=== PATIENT | female | born 1990 ===

== ENCOUNTER 2020-05-25 15:25 | Emergency (ER) | payer SELFPAY ==
[~2020-05-25] VITALS: Ht 165 cm; Wt 72.0 kg
[2020-05-25 15:44] VITALS: BP 124/86
[2020-05-25 16:00] VITALS: BP 125/80
[2020-05-25] MEDS ORDERED: LACTATED RINGERS 1,000 ML IV STA (16:07)
[2020-05-25] MEDS ORDERED: KETOROLAC 30 MG/ML VIAL IVP STA (16:07)
[2020-05-25] MEDS ORDERED: ONDANSETRON 4 MG/2 ML (SDV) Z0FRAN IVP ONE (16:15)
[2020-05-25 16:16] VITALS: BP 127/80
--- NOTE | 2020-05-25 16:16 | ED Cough/URI ---
General Chief Complaint: Respiratory Problems Stated Complaint: COVID COMPLAINTS Source: patient Exam Limitations: no limitations History of Present Illness Date Seen by Provider: May 25, 2020 Time Seen by Provider: 15:59 Initial Comments Here with report of headache, nausea, vomiting, shortness of breath and body aches. She has had fever at home. Tried to take Tylenol this morning but vomited. She works at [employer] in [place]. There is one positive contact from that facility. She has not been tested for COVID-19 and otherwise doesn't know of any other exposures. She was sent here from her work for testing. Patient is and information via sampler pickup line. Timing/Duration: other (6 days) Severity/Quality: mild, dry cough Prior Episodes/Possible Cause: no prior episodes Modifying Factors: Improves With Rest Associated Symptoms: cough, fever/chills, nasal congestion, shortness of breath Allergies and Home Medications Allergies Coded Allergies: No Known Drug Allergies (Unverified , 05/25/20) Home Medications No Active Prescriptions or Reported Meds Patient Home Medication List Home Medication List Reviewed: Yes Review of Systems Review of Systems Constitutional: see HPI, fever; No weakness EENTM: see HPI; No ear pain Respiratory: cough, short of breath Cardiovascular: no symptoms reported Gastrointestinal: No abdominal pain; nausea, vomiting Genitourinary: no symptoms reported : No Musculoskeletal: muscle pain; No muscle weakness Skin: no symptoms reported Psychiatric/Neurological: No Symptoms Reported All Other Systems Reviewed Negative Unless Noted: Yes Past Ayhbejx-Njhddz-Exksdh Hx Past Med/Social Hx: Reviewed Nursing Past Med/Soc Hx Patient Social History Alcohol Use: Denies Use Recreational Drug Use: No Smoking Status: Never a Smoker Past Medical History Surgeries: Yes Section Respiratory: No Cardiac: No Neurological: No : 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 oz. kg; BMI Method: General Appearance: WD/WN, no apparent distress HEENT: PERRL/EOMI, pharyngeal erythema Neck: full range of motion, supple Respiratory: lungs clear, normal breath sounds Cardiovascular: regular rate, rhythm, no murmur Gastrointestinal: non tender, soft Extremities: non-tender, normal inspection Neurologic/Psychiatric: alert, oriented x 3 Skin: normal color, warm/dry Progress/Results/Core Measures Suspected Sepsis SIRS Temperature: Pulse: Respiratory Rate: Laboratory Tests 05/25/20 16:20: White Blood Count 4.7 Blood Pressure / Mean: Laboratory Tests 05/25/20 16:20: Creatinine 0.65, Platelet Count 165, Total Bilirubin 0.3 Results/Orders Lab Results Laboratory Tests Test 05/25/20 16:10 05/25/20 16:20 05/25/20 16:22 Range/Units Urine Color YELLOW Urine Clarity CLEAR Urine pH 7.0 5-9 Urine Specific Colby 1.025 H 1.016-1.022 Urine Protein NEGATIVE NEGATIVE Urine Glucose (UA) NEGATIVE NEGATIVE Urine Ketones NEGATIVE NEGATIVE Urine Nitrite NEGATIVE NEGATIVE Urine Bilirubin NEGATIVE NEGATIVE Urine Urobilinogen 0.2 < = 1.0 MG/DL Urine Leukocyte Esterase NEGATIVE NEGATIVE Urine RBC (Auto) TRACE-L NEGATIVE Urine RBC NONE /HPF Urine WBC NONE /HPF Urine Squamous Epithelial Cells RARE /HPF Urine Crystals NONE /LPF Urine Bacteria NEGATIVE /HPF Urine Casts NONE /LPF Urine Mucus SMALL H /LPF Urine Culture Indicated NO Urine Test NEGATIVE NEGATIVE White Blood Count 4.7 4.3-11.0 10^3/uL Red Blood Count 4.19 L 4.35-5.85 10^6/uL Hemoglobin 12.7 11.5-16.0 G/DL Hematocrit 38 35-52 % Mean Corpuscular Volume 91 80-99 FL Mean Corpuscular Hemoglobin 30 25-34 PG Mean Corpuscular Hemoglobin Concent 33 32-36 G/DL Red Cell Distribution Width 12.9 10.0-14.5 % Platelet Count 165 130-400 10^3/uL Mean Platelet Volume 11.1 H 7.4-10.4 FL Neutrophils (%) (Auto) 55 42-75 % Lymphocytes (%) (Auto) 34 12-44 % Monocytes (%) (Auto) 8 0-12 % Eosinophils (%) (Auto) 3 0-10 % Basophils (%) (Auto) 0 0-10 % Neutrophils # (Auto) 2.6 1.8-7.8 X 10^3 Lymphocytes # (Auto) 1.6 1.0-4.0 X 10^3 Monocytes # (Auto) 0.4 0.0-1.0 X 10^3 Eosinophils # (Auto) 0.1 0.0-0.3 10^3/uL Basophils # (Auto) 0.0 0.0-0.1 10^3/uL Sodium Level 138 135-145 MMOL/L Potassium Level 3.7 3.6-5.0 MMOL/L Chloride Level 108 H 98-107 MMOL/L Carbon Dioxide Level 20 L 21-32 MMOL/L Anion Gap 10 5-14 MMOL/L Blood Urea Nitrogen 19 H 7-18 MG/DL Creatinine 0.65 0.60-1.30 MG/DL Estimat Glomerular Filtration Rate > 60 BUN/Creatinine Ratio 29 Glucose Level 110 H 70-105 MG/DL Calcium Level 8.3 L 8.5-10.1 MG/DL Corrected Calcium 8.3 L 8.5-10.1 MG/DL Total Bilirubin 0.3 0.1-1.0 MG/DL Aspartate Amino Transf (AST/SGOT) 16 5-34 U/L Alanine Aminotransferase (ALT/SGPT) 11 0-55 U/L Alkaline Phosphatase 39 L 40-136 U/L C-Reactive Protein High Sensitivity 0.03 0.00-0.50 MG/DL Total Protein 6.8 6.4-8.2 GM/DL Albumin 4.0 3.2-4.5 GM/DL My Orders Orders - NGOZI BURTON MD Chest 1 View, Ap/Pa Only (05/25/20 16:07) Cbc With Automated Diff (05/25/20 16:07) Comprehensive Metabolic Panel (05/25/20 16:07) Hs C Reactive Protein (05/25/20 16:07) Ua Culture If Indicated (05/25/20 16:07) Urine Bedside (05/25/20 16:07) Coronavirus Sars-Cov-2 So 2018 (05/25/20 16:07) Ondansetron Injection (Zofran Injectio (05/25/20 16:15) Lactated Ringers (Lr 1000 Ml Iv Solution (05/25/20 16:07) Ed Iv/Invasive Line Start (05/25/20 16:07) Ketorolac Injection (Toradol Injection) (05/25/20 16:07) Hcg,Qualitative Urine (05/25/20 16:33) Medications Given in ED Current Medications Medications Dose Ordered Sig/Cha Route Start Time Stop Time Status Last Admin Dose Admin Ondansetron HCl 4 mg ONCE ONCE IVP 05/25/20 16:15 05/25/20 16:16 DC 05/25/20 16:50 4 MG Vital Signs/I&O 05/25/20 05/25/20 05/25/20 05/25/20 15:44 16:00 16:02 16:16 Temp 36.6 Pulse 65 60 66 63 Resp 18 18 18 18 B/P (MAP) 124/86 (99) 125/80 (95) 124/86 (99) 127/80 (96) Pulse Ox 99 99 100 99 O2 Delivery Room Air Room Air Room Air Room Air 05/25/20 16:50 Temp 36.6 Capillary Refill : Progress Note : Progress Note Seen and evaluated. IV, labs, UA, UCG, chest x-ray, COVID-19 screening, LR 1 L bolus, Zofran 4 mg IV and Toradol 30 mg IV ordered. Monitor patient. 1712: Labs and chest x-ray reviewed. No significant findings. Patient is feeling better. Discharged home with return precautions. Patient verbalize understanding instructions and agreement with plan. Discharge instructions given via sampler pickup line. Diagnostic Imaging Diagonstic Imaging: Xray Plain Films/CT/US/NM/MRI: chest Comments [facility], [place] NAME: JANETHRAJ MONTIELMICHELE [facility] REC#: [id number] PT STATUS: REG ER : 1990 PHYSICIAN: NGOZI BURTON MD ADMIT DATE: 05/25/20/ER Draft Date of Exam:05/25/20 CHEST 1 VIEW, AP/PA ONLY INDICATION: Cough. Evaluation for Covid. EXAMINATION: Portable chest. FINDINGS: The lungs are well-aerated and clear. The heart is not enlarged. No pulmonary edema or hilar adenopathy. No pneumothorax or pleural effusion. No bony abnormalities. IMPRESSION: Normal portable chest. Dictated on workstation # [id number] Dict: 05/25/20 1654 Trans: 05/25/20 1657 [id number] Interpreted by: GISELA NARAYAN MD Electronically signed by: Departure Impression Primary Impression: Viral infection Additional Impression: COVID-19 evaluation Disposition: 01 HOME, SELF-CARE Condition: Improved Departure-Patient Inst. Decision time for Depature: 17:14 Patient Instructions: Coronavirus Disease 2019 (COVID-19) (DC) Add. Discharge Instructions: All discharge instructions reviewed with patient and/or family. Voiced understanding. You will be off work until test results are noted. If your negative, you should remain off work for 3 days after symptoms resolve. If you were positive, he will be required to be in isolation for the health department and they will call you. We will let you know of your results usually within 2-3 days. You may take Tylenol 1000 mg every 8 hours as needed for pain. You may take ibuprofen 600 mg every 8 hours as needed for pain. Drink plenty of fluids and get plenty of rest. Return for worse pain, fever, vomiting or other concerns as needed. Scripts Ondansetron (Ondansetron Odt) 4 Mg Tab.rapdis 4 MG PO Q6H PRN for NAUSEA/VOMITING, #12 TAB 0 Refills Prov: NGOZI BURTON MD 05/25/20 NGOZI BURTON MD May 25, 2020 16:16
--- NOTE | 2020-05-25 16:22 | NUR ---
COVID SWAB COLLECTED.
[2020-05-25 16:30] VITALS: BP 115/80
[2020-05-25 16:39] LABS: BILIRUBIN,URINE NEGATIVE (NEGATIVE); CLARITY,URINE CLEAR; COLOR,URINE YELLOW; GLUCOSE, URINE (UA) NEGATIVE (NEGATIVE); KETONES,URINE NEGATIVE (NEGATIVE); LEUKOCYTE ESTERASE ,URINE NEGATIVE (NEGATIVE); NITRITE,URINE NEGATIVE (NEGATIVE); PROTEIN,URINE NEGATIVE (NEGATIVE)
[2020-05-25 16:45] VITALS: BP 115/75
[2020-05-25 16:49] LABS: BASOPHILS % (AUTO) 0 % (0-10); EOSINOPHILS # (AUTO) 0.1 10^3/uL (0.0-0.3); EOSINOPHILS % (AUTO) 3 % (0-10); HEMATOCRIT 38 % (35-52); HEMOGLOBIN 12.7 G/DL (11.5-16.0); LYMPHOCYTES # (AUTO) 1.6 X 10^3 (1.0-4.0); LYMPHOCYTES % (AUTO) 34 % (12-44); MEAN CORPUSCULAR HEMOGLOBIN 30 PG (25-34); MEAN CORPUSCULAR HGB CONC 33 G/DL (32-36); MEAN CORPUSCULAR VOLUME 91 FL (80-99); MEAN PLATELET VOLUME 11.1 FL (7.4-10.4); MONOCYTES # (AUTO) 0.4 X 10^3 (0.0-1.0); MONOCYTES % (AUTO) 8 % (0-12); NEUTROPHILS # (AUTO) 2.6 X 10^3 (1.8-7.8); NEUTROPHILS % (AUTO) 55 % (42-75); PLATELET COUNT 165 10^3/uL (130-400); RED CELL DISTRIBUTION WIDTH 12.9 % (10.0-14.5); WHITE BLOOD COUNT 4.7 10^3/uL (4.3-11.0)
[2020-05-25 16:53] LABS: CHLORIDE 108 MMOL/L (98-107); POTASSIUM 3.7 MMOL/L (3.6-5.0); SODIUM 138 MMOL/L (135-145)
[2020-05-25 16:54] LABS: CALCIUM 8.3 MG/DL (8.5-10.1)
[2020-05-25 16:55] LABS: GLUCOSE 110 MG/DL (70-105)
[2020-05-25 16:56] LABS: TOTAL PROTEIN 6.8 GM/DL (6.4-8.2)
[2020-05-25 16:57] LABS: BILIRUBIN,TOTAL 0.3 MG/DL (0.1-1.0); CARBON DIOXIDE 20 MMOL/L (21-32)
--- NOTE | 2020-05-25 16:58 | Diagnostic Imaging Report ---
INDICATION: Cough. Evaluation for Covid. EXAMINATION: Portable chest. FINDINGS: The lungs are well-aerated and clear. The heart is not enlarged. No pulmonary edema or hilar adenopathy. No pneumothorax or pleural effusion. No bony abnormalities. IMPRESSION: Normal portable chest. Dictated by: Dictated on workstation # [id number]
[2020-05-25 16:59] LABS: ALKALINE PHOSPHATASE 39 U/L (40-136); CREATININE SERUM 0.65 MG/DL (0.60-1.30); GFR ESTIMATED > 60
[2020-05-25 17:00] LABS: BUN/CREATININE RATIO 29
[2020-05-25 17:02] LABS: ALANINE AMINOTRANSFERASE 11 U/L (0-55)
[2020-05-25 17:08] LABS: BACTERIA,URINE NEGATIVE /HPF; SQUAMOUS EPITHELIAL CELL,UR RARE /HPF
[2020-05-25] MEDS ORDERED: ONDA4TAB11 PO (17:17)
[2020-05-25 17:30] VITALS: BP 118/78
--- NOTE | 2020-05-30 17:48 | NUR ---
Notified patient via front end application developer line that she is COVID positive. All questions answered. Explained quarantine to her.
== END 2020-05-25 17:30 | disposition home or self-care (01) ==
LOC: ER 15:27
DX: U07.1 COVID-19 (principal)
CPT/HCPCS: 71045; 80053; 81000; 84703; 85025; 86141; 96361; 96374; 96375; 99284; U0002; 36415; 87635